=== PATIENT | male | born 1965 | race Native Hawaiian/Other Pacific Islander ===

== ENCOUNTER 2017-04-27 01:53 | Emergency (ER) | payer MEDICAID ==
[2017-04-27 02:14] VITALS: BP 183/99
[2017-04-27] MEDS ORDERED: cloNIDine HCL 0.1 MG TAB ONE (02:14)
[2017-04-27] MEDS ORDERED: cloNIDine HCL 0.1 MG TAB PO ONE (02:45)
[2017-04-27] MEDS ORDERED: KETOROLAC TROMETH 60MG/2ML VIAL IM ONE ×2 (03:30→04:12)
== END 2017-04-27 04:58 | disposition home or self-care (01) ==
LOC: ER 01:58
DX: M25.572 Pain in left ankle and joints of left foot (principal); X58.XXXA Exposure to other specified factors, initial encounter; Y93.89 Activity, other specified; Y99.8 Other external cause status; Y92.89 Other specified places as the place of occurrence of the external cause
CPT/HCPCS: 73610; 73630; 96372; 99284; J1885